=== PATIENT | male | born 1985 | race Caucasian/White ===

== ENCOUNTER 2016-04-20 19:37 | Emergency (ER) | payer OTHER ==
[~2016-04-20] VITALS: Ht 188 cm; Wt 122.1 kg
[~2016-04-20 19:37] MED LIST: AMBIEN10 MG PO; BENADRYL ALLERG25 MG PO; BENTYL10 MG PO; CLONAZEPAM1 MG PO; CYANOCOBALAM1000 MCG PO; ENDOCET 5-3251 EACH PO; FLONASE16 G1 BOTH NARES; HYDROCODON-ACE1 EAC7 PO; KLONOPIN0.5 M1 PO; LAMICTAL25 MG PO; LATUDA20 MG PO; LEXAPRO10 MG PO; LEXAPRO5 MG PO; LIDODERM 5% P1 PATCH TD; MEDROL DOSEPAK4 MG PO; MULTIVITAMIN1 EAC2 PO; NAPROSYN500 MG PO; NORCO 5/3251 TABLET PO; OMEPRAZOLE40 M1 PO; OXCARBAZEPINE300 MG PO; PERCOCET 5/31 TABLET PO; PRILOSEC40 MG PO; REGLAN10 MG PO; SKELAXIN400 M1; TYLENOL EXTRA500 MG PO; ULTRAM50 MG PO; VITAMIN D35000 UNIT PO; ZANTAC150 MG PO; ZOFRAN ODT4 MG PO; ZOFRAN4 MG PO; ZOLPIDEM TARTRA10 MG PO
[2016-04-20 20:34] LABS: SERUM ETHYL ALCOHOL < 10 mg/dL
[2016-04-20 21:25] LABS: ADD MIUA? YES; BILIRUBIN NEGATIVE; BLOOD NEGATIVE; COLOR YELLOW ((YELLOW)); GLUCOSE (STRIP) NEGATIVE; KETONES NEGATIVE; LEUKOCYTES SMALL; NITRITE NEGATIVE; PROTEIN (STRIP) NEGATIVE
[2016-04-20 21:32] LABS: BACTERIA NONE SEEN /HPF; EPITHELIAL CELLS RARE /HPF; MUCUS TRACE /LPF; RED BLOOD CELLS 0-5 /HPF (0-5); UCUL ADDED? NO
[2016-04-20 21:35] LABS: CASTS NONE SEEN /LPF; CRYSTALS NONE SEEN
[2016-04-20 21:41] LABS: AMPHETAMINE NEGATIVE (500 ng/mL); BARBITURATES NEGATIVE (200 ng/mL); BENZODIAZEPINES NEGATIVE (150 ng/mL); COCAINE NEGATIVE (150 ng/mL); INTERNAL CONTROLS VALID? YES; METHADONE NEGATIVE (200 ng/mL); METHAMPHETAMINE NEGATIVE (500 ng/mL); OPIATES (MORPHINE) NEGATIVE (100 ng/mL); OXYCODONE NEGATIVE (100 ng/mL); PHENCYCLIDINE NEGATIVE (25 ng/mL); PROPOXYPHENE NEGATIVE (300 ng/mL); THC CANNABINOIDS NEGATIVE (50 ng/mL); TRICYCLIC ANTIDEPRESSANTS NEGATIVE (300 ng/mL)
[2016-04-20 22:09] LABS: MCH 30.6 PG (29.0-34.0); MCHC 33.2 G/DL (30.0-36.0); MCV 92.2 FL (86-99); MEAN PLAT.VOLUME 11.2 uM^3 (9.0-12.4); PLATELET COUNT 252 K/uL (156-360); RBC DIS.WIDTH-CV 12.4 % (11.8-14.6); RBC DIS.WIDTH-SD 41.1 % (39-53); RED BLOOD COUNT 4.77 M/uL (4.00-5.50); WHITE BLOOD COUNT 8.9 K/uL (4.1-10.2)
[2016-04-20 22:14] LABS: CHLORIDE 106 mEq/L (99-109); POTASSIUM 4.3 mEq/L (3.7-5.4); SODIUM 142 mEq/L (136-147)
[2016-04-20 22:15] LABS: GLUCOSE 98 mg/dL (70-99)
[2016-04-20 22:17] LABS: ANION GAP 11 MEQ/L (2-14)
[2016-04-20 22:19] LABS: GFR ESTIMATE (CALCULATED) > 59 mL/min/
[2016-04-20 22:21] LABS: UREA NITROGEN (BUN) 22 mg/dL (9-23)
[2016-04-20 22:22] LABS: SALICYLATE < 5.0 MG/DL (15-30)
[2016-04-20] MEDS ORDERED: ATARAX,VISTARIL50 MG PO (22:51)
[2016-04-20 23:05] VITALS: BP 132/95
== END 2016-04-20 23:06 | disposition home or self-care (01) ==
LOC: EME 19:37
PROVIDERS: Emergency Medicine
DX: F33.8 Other recurrent depressive disorders (principal); F41.1 Generalized anxiety disorder
CPT/HCPCS: 80048; 81003; 85027; 90839; 99281; 99284; G0480; Q0177

== ENCOUNTER 2016-05-21 16:50 | Emergency (ER) | payer OTHER ==
[~2016-05-21] VITALS: Ht 188 cm; Wt 120.0 kg
[~2016-05-21 16:50] MED LIST changes: +ATARAX,VISTARIL50 MG PO
[2016-05-21] MEDS ORDERED: DULOXETINE HCL30 MG PO (17:11)
[2016-05-21] MEDS ORDERED: LAMICTAL25 MG PO (17:13)
[2016-05-21] MEDS ORDERED: DESYREL100 MG PO (17:14)
[2016-05-21 18:06] VITALS: BP 132/78
== END 2016-05-21 18:07 | disposition home or self-care (01) ==
LOC: EME 16:50
DX: F41.9 Anxiety disorder, unspecified (principal); R00.0 Tachycardia, unspecified
CPT/HCPCS: 93005; 99281; 99283

== ENCOUNTER 2016-05-23 17:15 | Inpatient (IN) | payer OTHER ==
[~2016-05-23] VITALS: Ht 188 cm; Wt 121.7 kg
[~2016-05-23 17:15] MED LIST changes: +DESYREL100 MG PO; +DULOXETINE HCL30 MG PO
[2016-05-23 18:18] LABS: HEMATOCRIT 48.4 % (38.0-50.0); MCH 30.3 PG (29.0-34.0); MCHC 32.2 G/DL (30.0-36.0); MEAN PLAT.VOLUME 10.1 uM^3 (9.0-12.4); PLATELET COUNT 309 K/uL (156-360); RBC DIS.WIDTH-SD 41.9 % (39-53); RED BLOOD COUNT 5.15 M/uL (4.00-5.50); WHITE BLOOD COUNT 7.9 K/uL (4.1-10.2)
[2016-05-23 18:32] LABS: CHLORIDE 106 mEq/L (99-109); POTASSIUM 3.8 mEq/L (3.7-5.4); SODIUM 143 mEq/L (136-147)
[2016-05-23 18:34] LABS: GLUCOSE 97 mg/dL (70-99)
[2016-05-23 18:35] LABS: ADD MEDTOX COMMENT Y; AMPHETAMINE NEGATIVE (500 ng/mL); BARBITURATES NEGATIVE (200 ng/mL); BENZODIAZEPINES PRESUMPTIVE POSITIVE (150 ng/mL); COCAINE NEGATIVE (150 ng/mL); INTERNAL CONTROLS VALID? YES; METHADONE NEGATIVE (200 ng/mL); METHAMPHETAMINE NEGATIVE (500 ng/mL); OPIATES (MORPHINE) NEGATIVE (100 ng/mL); OXYCODONE NEGATIVE (100 ng/mL); PHENCYCLIDINE NEGATIVE (25 ng/mL); PROPOXYPHENE NEGATIVE (300 ng/mL); THC CANNABINOIDS NEGATIVE (50 ng/mL); TRICYCLIC ANTIDEPRESSANTS NEGATIVE (300 ng/mL)
[2016-05-23 18:35] LABS: ANION GAP 12 MEQ/L (2-14)
[2016-05-23 18:37] LABS: SERUM ETHYL ALCOHOL < 10 mg/dL
[2016-05-23 18:38] LABS: GFR ESTIMATE (CALCULATED) > 59 mL/min/; UREA NITROGEN (BUN) 12 mg/dL (9-23)
[2016-05-23 18:55] LABS: BENZODIAZEPINES QUANT VALUE 0 NG/ML
[2016-05-23 18:56] LABS: BENZODIAZEPINES, URINE SCREEN Negative (200 ng/mL)
[2016-05-23] MEDS ORDERED: CYMBALTA60 MG PO (19:37)
[2016-05-23 21:57] VITALS: BP 135/76
[2016-05-24 07:31] VITALS: BP 105/55
[2016-05-24 15:51] VITALS: BP 119/76
[2016-05-25 08:05] VITALS: BP 110/54
== END 2016-05-25 12:00 | disposition home or self-care (01) | DRG 885 ==
LOC: EME 17:15 → 1WEST 19:42 → EDOF 19:42 → 1WEST 21:52
DX: F33.9 Major depressive disorder, recurrent, unspecified (principal); F41.0 Panic disorder [episodic paroxysmal anxiety]; Z73.3 Stress, not elsewhere classified; Z56.6 Other physical and mental strain related to work
CPT/HCPCS: 80048; 84999; 85027; 90839; 93005; 99281; 99283; 99285; G0480